=== PATIENT | female | born 1955 | race Caucasian/White ===

== ENCOUNTER → 2018-02-03 | Outpatient (CLI) | payer MEDICAID, OTHER | LOC: FIMAGING 14:11 | PROVIDERS: ATTEND Family Medicine | DX: Z12.31 Encounter for screening mammogram for malignant neoplasm of breast (principal) ==

== ENCOUNTER → 2018-05-06 | Outpatient (CLI) | payer OTHER | LOC: EDSTATUS 08:17 → GIMAGING 14:21 | PROVIDERS: ATTEND Family Medicine | DX: M79.642 Pain in left hand (principal); M25.551 Pain in right hip | CPT/HCPCS: 73110-PO; 73502-PO ==